=== PATIENT | male | born 1970 | race Caucasian/White ===

== ENCOUNTER 2017-01-15 13:23 | Day surgery (SDC) | payer OTHER ==
[~2017-01-15] VITALS: Ht 185.4 cm; Wt 73.8 kg
[2017-01-15 16:24] VITALS: Ht 185.4 cm; Wt 73.8 kg
[2017-01-15 17:45] VITALS: BP 138/66; PULSE 72; RESP 24
[2017-01-15] MEDS ORDERED: MIDAZOLAM 1 MG/ML 2 ML INJ ONE ×2 (18:14)
[2017-01-15] MEDS ORDERED: FENTAnyl 50 MCG/ML VIAL ONE (18:15)
--- NOTE | 2017-01-15 18:15 | OPR ---
Date/Time of Note Date/Time of Note DATE: 01/15/17 TIME: 18:12 Operative Report Free Text/Dictation Colonoscopy Procedure Date: Jan 15, 2017 Preoperative Diagnosis Colorectal cancer screening Postoperative Diagnosis Normal colonic mucosa to cecum Moderate size internal hemorrhoids Operation Performed Colonoscopy to cecum Surgeon: RUTH GONZALEZ MD Anesthesia: other (Moderate sedation with Versed 4 mg fentanyl 75 mcg) Estimated Blood Loss: none Specimens None Grafts/Implants None Tubes/Drains None Complications None Pt Condition Post Procedure: stable Disposition: PACU Indications Colorectal cancer screening high risk Strong family history of colon cancer Operative\Procedure Findings Normal colonic mucosa to cecum. Moderate-sized internal hemorrhoids. Procedure Description Uneventful colonoscopy RUHT GONZALEZ MD Jan 15, 2017 18:15
[2017-01-15 18:30] VITALS: BP 131/93; PULSE 66; RESP 12
== END 2017-01-15 18:39 | disposition home or self-care (01) ==
LOC: GIL 13:23 → EDSEX 13:23 → GIL 18:39
PROVIDERS: ATTEND Internal Medicine Gastroenterology
DX: Z12.11 Encounter for screening for malignant neoplasm of colon (principal); K64.8 Other hemorrhoids; Z80.0 Family history of malignant neoplasm of digestive organs
CPT/HCPCS: 45378; J2250; J3010; Z7610